=== PATIENT | female | born 1940 | race Caucasian/White ===

== ENCOUNTER → 2016-07-01 | Day surgery (SDC) | payer MEDICARE, OTHER ==
[~2016-07-01] MED LIST: ALPRAZOLAM PO; AMBIEN PO; ANEXSIA 7.5/3251 TA1 PO; DITROPAN XL PO; DYAZIDE 37.5/251 CAP PO; HYDROCODON-ACE1 EAC4 PO; LEVOXYL PO; LEXAPRO PO; LIPITOR PO; LIPITOR20 MG PO; LISINOPRIL-HCTZ1 T18 PO; LOMOTIL TABLET1 TAB PO; LORTAB 7.5-5001 TAB PO; MULTI-VITAMIN1 TAB PO; PERCOCET PO; PRILOSEC PO; PRINIVIL10 MG PO; PROTONIX PO; TIROSINT50 MCG PO; WELCHOL625 MG; ZOCOR PO; ZOLOFT PO; ZOLOFT50 MG PO
--- NOTE | ~2016-07-01 | OR ---
Unit #: [id number] #: [id number] Patient: JERALD LEARY I [id number] [address] [address] [id number] O MR#: [id number] NAME: JERALD LEARY I. ROOM: Date of Procedure: 07/01/2016 Admission Date: 07/01/2016 Surgeon: Gareth Rosen M.D. : 1940 Attending Physician: Gareth Rosen M.D. Primary Care Physician: Medhat Zaidi M.D. OPERATIVE REPORT PRIMARY CARE PHYSICIAN Medhat Zaidi M.D. PREOPERATIVE DIAGNOSES The patient has presented with history of dyspepsia and dysphagia. In addition, she also needs a surveillance colonoscopy having had remote history of colon polyps. PROCEDURES PERFORMED 1. Upper gastrointestinal endoscopy and biopsy. 2. Upper gastrointestinal endoscopy and dilation with a 60-Ghanaian Martinez dilator, as well as colonoscopy with polypectomy. POSTOPERATIVE DIAGNOSES For upper endoscopy: 1. The patient had distal esophageal mucosal ring. The latter was dilated using a 60-Ghanaian Martinez dilator. 2. Grade 1 to 2 distal erosive esophagitis. 3. Mild prepyloric antral gastritis. This was in the form of linear erythematous streaks. 4. Rest of the examination up to third part of duodenum was normal. Biopsies were obtained from the antrum for CLOtest. In addition, distal esophageal ring was dilated using a 60-Ghanaian Martinez dilator. For colonoscopy: 1. A single sessile polyp in the proximal transverse colon. This was about 8 to 9 mm in size and was removed using snare polypectomy. 2. Small internal hemorrhoids. 3. Rest of the examination up to cecum and terminal ileum was normal. The quality of the prep was excellent. RECOMMENDATIONS 1. Follow up the results of polyp histology. 2. Repeat colonoscopy in 5 years. 3. The patient will be started on pantoprazole 40 mg p.o. daily. 4. She will be followed up in the office in 3 to 4 months' time. SEDATION USED MAC. DESCRIPTION OF PROCEDURE Following detailed explanation of potential risks and complications of an upper endoscopy and a colonoscopy, namely perforation, bleeding, and Unit #: [id number] #: [id number] Patient: SAPPHIRE,JERALD I complication related to sedation, the patient was brought to GI lab and laid in the left lateral decubitus position. Lubricated tip of the Olympus video upper endoscope was passed through the bite block into the proximal esophagus under direct vision. The entire esophageal mucosa was examined. The patient was noted to have distal grade 1 erosive esophagitis. In addition, there was presence of esophageal ring. The scope was then advanced into the gastric cavity and the latter was insufflated. Mucosa of the fundus, body, and antrum was examined. Mild diffuse prepyloric antral gastritis was noted. Pylorus was intubated with visualization of the normal duodenal bulb and second and third part of the duodenum. Upon withdrawal and retroflexion, incisura, cardia, and greater curve was examined and biopsy was obtained from the antrum for CLOtest. The scope was then withdrawn in the distal esophagus. Entire esophageal mucosa was examined all the way up to pharynx. No additional findings were noted. A 60-Ghanaian Martinez dilator was introduced through the oral cavity and advanced into the esophagus. Relook endoscopy showed fracturing of the distal esophageal ring. Minimal bleeding was noted. The area was thoroughly washed with water. Good hemostasis was achieved. The scope was then withdrawn in the distal esophagus. The entire esophageal mucosa was examined all the way up to pharynx. No additional findings were noted. The examination table was then turned by 180 degrees and the patient was positioned for a colonoscopy. A digital rectal examination was performed, which was normal. Lubricated tip of the Olympus video colonoscope was inserted through the anus and advanced under direct vision. The scope was advanced past rectosigmoid into descending colon. No diverticula were noticed in this area. The scope tip was then navigated all the way up to cecum with visualization of the ileocecal valve and the appendiceal orifice. Preparation was excellent with good visualization and photodocumentation was obtained. Last few inches of the terminal ileum were also visualized after intubation of the ileocecal valve and appeared normal. Successive segments of the colonic mucosa were examined upon withdrawal and appeared unremarkable except for a single sessile polyp in the proximal transverse colon. The latter was removed using snare cautery polypectomy. It was retrieved and sent for histology. Excellent hemostasis was achieved and photodocumentation was obtained. No additional polyps were noted. The patient did not have any diverticulosis; however, she did have small internal hemorrhoids seen at the anal verge on retroflexion. The scope was then withdrawn. The patient returned to the recovery area. She tolerated the procedure without any postprocedure complications. Dictated by... Ruthy Lambert/sumanth TD: 07/02/2016 01:43 JOB #: [id number] Unit #: [id number] #: [id number] Patient: JERALD LEARY I OPERATIVE REPORT Page 1 of 1 X Gareth Rosen MD PROCEDURE OPERATIVE NOTE
== END | disposition home or self-care (01) ==
LOC: COPS 12:16
DX: K22.2 Esophageal obstruction (principal); K20.8 Other esophagitis; Z12.11 Encounter for screening for malignant neoplasm of colon; K29.70 Gastritis, unspecified, without bleeding; D12.3 Benign neoplasm of transverse colon; K64.8 Other hemorrhoids; Z86.010 Personal history of colon polyps; I10 Essential (primary) hypertension; E78.5 Hyperlipidemia, unspecified; E03.9 Hypothyroidism, unspecified
CPT/HCPCS: 83516; 87077; 88305

== ENCOUNTER 2016-09-22 15:17 | Emergency (ER) | payer MEDICARE, OTHER ==
--- NOTE | ~2016-09-22 | CT57 ---
[facility] A Service of [facility] & [facility] RADIOLOGY TEXT RESULTS PATIENT: JERALD LEARY I LOCATION: [facility] : [birth year] UNIT #: [id number] AGE: [address]: Noelle Mcgowan MD SEX: F ORDER DR: [id number] [facility] [address] [place], [place] [address] [id number] E MR#: [id number] Acc #: [id number] NAME: JERALD LEARY I. : 1940 SEX: F STUDY DATE/TIME: 09/22/2016 17:23 UNIT: [facility] ROOM: STUDY DESCRIPTION: CT Chest Wo Cont Attending Physician: Noelle Mcgowan M.D. Ordering Physician: Noelle Mcgowan M.D. Primary Care Physician: Medhat Zaidi M.D. MEDICAL IMAGING REPORT This report is preliminary unless electronic signature is present EXAM CT chest without contrast HISTORY Right posterior chest pain and thoracic spine pain after twisting injury yesterday. FINDINGS This CT exam was performed with one or more of the following radiation dose reduction techniques: Automatic exposure control, adjustment of mA and/or kV according to patient size, and iterative reconstruction. CT chest without contrast demonstrates mild bilateral emphysema. Mild linear atelectasis or scarring in the lower lungs bilaterally. No airspace infiltrates. No pleural effusions. Additional mild subsegmental atelectasis in the posterior right middle lobe. Mild dilatation of the ascending thoracic aorta measuring 3.6 cm in diameter. The aortic arch and descending thoracic aorta are normal in caliber. No adenopathy. Nondisplaced fractures of the posterior right sixth and seventh ribs and nondisplaced fractures of the medial tips of the sixth, seventh, eighth and ninth ribs, and nondisplaced fractures of the right transverse processes at T7 and T8. Mild multilevel degenerative and hypertrophic changes in the mid and lower thoracic spine. IMPRESSION 1. Nondisplaced fractures of the posterior right sixth and seventh ribs and nondisplaced fractures of the medial tips of the sixth, seventh, eighth and ninth ribs at the costovertebral junctions. There are also nondisplaced fractures of the right transverse processes of T7 and T8. 2. No pneumothorax. 3. No active disease in the lungs. 4. Kymb-go-hwnydkxv bilateral emphysema. [facility] A Service of [facility] [place] [facility] [place] RADIOLOGY TEXT RESULTS PATIENT: JERALD LEARY I LOCATION: [facility] : 44 UNIT #: [id number] AGE: [address]: Noelle Mcgowan MD SEX: F ORDER DR: 5. Minimal dilatation of the ascending thoracic aorta measuring 3.6 cm in diameter. Dictated by... Mustapha Padilla M.D. THIS IS AN ELECTRONICALLY VERIFIED REPORT Mustapha Padilla M.D. at 09/23/2016 3:08 PM DFL/psc TD: 09/23/2016 03:48 JOB #: [id number] MEDICAL IMAGING REPORT Page 1 of 1 COPY
[2016-09-22 17:25] LABS: BASOPHIL% 0.3 % (0-2.5); EOSINOPHIL% 0.3 % (0.0-7.0); HEMOGLOBIN 13.9 gm/dL (12.0-16.0); LYMPHOCYTE# 1.3 X10e3 (1.0-3.5); LYMPHOCYTE% 14.5 % (17.0-45.0); MEAN CORPUSCULAR HEMOGLOBIN 32.6 PG (28-34); MEAN CORPUSCULAR HGB CONC 33.2 g/dL (30-36); MONOCYTE# 0.5 X10e3 (0-1.0); MONOCYTE% 5.6 % (3.0-12.0); NEUTROPHIL# 7.4 X10e3 (1.5-7.1); NEUTROPHIL% 79.3 % (40-75); PLATELET COUNT 175 X10e3 (140-420); RED BLOOD COUNT 4.28 X10e (3.90-5.30); RED CELL DISTRIBUTION WIDTH 14.3 % (11.0-15.5); WHITE BLOOD COUNT 9.3 X10e3 (4.0-10.5)
[2016-09-22 17:27] LABS: DIFF IND NO
[2016-09-22 17:30] LABS: PARTIAL THROMBOPLASTIN TIME 22.5 SECONDS (23.5-31.3); PROTHROMBIN TIME (PATIENT) 10.5 SECONDS (10.0-11.7)
[2016-09-22 17:36] LABS: BILIRUBIN, DIRECT 0.1 mg/dL (0.0-0.2); BILIRUBIN,INDIRECT 0.2 mg/dL (0.0-0.9); BILIRUBIN,TOTAL 0.3 mg/dL (0.2-2.0); BUN/CREATININE RATIO 25.71; CREATININE SERUM 0.7 mg/dL (0.6-1.4); GLOM FILT RATE Estimated 85.4 mL/min (>60); POTASSIUM 3.3 mmol/L (3.5-5.1); PROTEIN TOTAL SERUM 7.1 g/dL (6.0-8.3)
== END 2016-09-22 20:57 | disposition home or self-care (01) ==
LOC: CED 15:17
PROVIDERS: Student in an Organized Health Care Education/Training Program
DX: S22.41XA Multiple fractures of ribs, right side, initial encounter for closed fracture (principal); S22.069A Unspecified fracture of T7-T8 vertebra, initial encounter for closed fracture; S22.059A Unspecified fracture of T5-T6 vertebra, initial encounter for closed fracture; I10 Essential (primary) hypertension; Z90.49 Acquired absence of other specified parts of digestive tract; F17.200 Nicotine dependence, unspecified, uncomplicated; X58.XXXA Exposure to other specified factors, initial encounter; Y92.9 Unspecified place or not applicable
CPT/HCPCS: 71250; 80048; 80076; 83690; 85025; 85610; 85730; 94010; 96361; 96374; 96375; 99284; J2270; J3360

== ENCOUNTER → 2016-11-06 | Outpatient (CLI) | payer MEDICARE, OTHER ==
--- NOTE | ~2016-11-06 | BD1 ---
[facility] A Service of [facility] & [facility] RADIOLOGY TEXT RESULTS PATIENT: JERALD LEARY I LOCATION: [facility] : 42 UNIT #: [id number] AGE: [address]: Medhat Zaidi MD SEX: F ORDER DR: [id number] [facility] [address] [place], [place] [address] [id number] O MR#: [id number] Acc #: [id number] NAME: JERALD LEARY I. : 1940 SEX: F STUDY DATE/TIME: 11/06/2016 12:05 UNIT: [facility] ROOM: STUDY DESCRIPTION: BD Dexa Bone Dens 1+ Site Attending Physician: Medhat Zaidi M.D. Ordering Physician: Medhat Zaidi M.D. Primary Care Physician: Medhat Zaidi M.D. MEDICAL IMAGING REPORT This report is preliminary unless electronic signature is present EXAM DXA scan, 11/06/2016. HISTORY Status post menopause with no hormone replacement therapy. Osteopenia. Hypertension with blood pressure medication for 10 years. Thyroid medication for 10 years. Smoking history since age 20. Fracture of 4 ribs in last 10 years. FINDINGS Bone mineral density in the lumbar spine from L1-L4 was 1.141 g/cm2 which is 0.9 standard deviations above the mean when compared to the young adult reference population which is within the range of normal. This is 3.2 standard deviations above the mean when compared to the age-matched population. Compared with 01/25/2013, there has been an increase in bone mineral density in the lumbar spine of 3.4%. Bone mineral density in the left femoral neck was 0.506 g/cm2 which is 3.1 standard deviations below the mean when compared to the young adult reference population which is characteristic of osteoporosis. This is 1 standard deviation below the mean when compared to the age-matched population. Compared with 01/25/2013, there has been a decrease in bone mineral density in the left hip of 6.6%. IMPRESSION Bone mineral density in the lumbar spine within the range of normal and within the left hip characteristic of osteoporosis. Compared with 01/25/2013, there has been an increase in bone mineral density in the lumbar spine and a decrease in bone mineral density in the left hip. Dictated by... Gonzalo Contreras M.D. [facility] A Service of [facility] & [facility] RADIOLOGY TEXT RESULTS PATIENT: JERALD LEARY I LOCATION: [facility] #: [id number] : 44 UNIT #: [id number] AGE: [address]: Medhat Zaidi MD SEX: F ORDER DR: THIS IS AN ELECTRONICALLY VERIFIED REPORT Gonzalo Contreras M.D. at 11/07/2016 7:33 AM DERICK/talon TD: 11/06/2016 15:08 JOB #: [id number] MEDICAL IMAGING REPORT Page 1 of 1 COPY
== END | disposition home or self-care (01) ==
LOC: CWCC 11:30
DX: M81.0 Age-related osteoporosis without current pathological fracture (principal); M85.88 Other specified disorders of bone density and structure, other site
CPT/HCPCS: 77080